=== PATIENT | female | born 1990 | race Caucasian/White ===

== ENCOUNTER 2024-11-06 07:08 | Day surgery (SDC) | payer SELFPAY ==
[2024-11-04 09:04] VITALS: BMI 26.9
[2024-11-06] MEDS ORDERED: Bupivacaine/Epinephrine 0.25% 30 ML VIAL ONE (08:23)
[2024-11-06] MEDS ORDERED: Scopolamine 1 mg/72 hour Patch ONE (08:29)
[2024-11-06] MEDS ORDERED: Famotidine/PF 20 mg/2ml Vial ONE (08:29)
[2024-11-06] MEDS ORDERED: SUGAMMADEX SODIUM 200 MG/2 ML VIAL ONE (08:31)
[2024-11-06] MEDS ORDERED: PROPOFOL 20 ML ONE (08:31)
[2024-11-06] MEDS ORDERED: Lidocaine 2% PF 5 ML VIAL ONE (08:31)
[2024-11-06] MEDS ORDERED: Ondansetron PF 4 MG/2 ML Vial ONE (08:31)
[2024-11-06] MEDS ORDERED: Dexamethasone 4 mg/ml Vial ONE (08:31)
[2024-11-06] MEDS ORDERED: Fentanyl 100 MCG/2 ML VIAL ONE (08:31)
[2024-11-06] MEDS ORDERED: Ketorolac Tromethamine 30 MG (1 mL) VIAL ONE (08:31)
[2024-11-06] MEDS ORDERED: Rocuronium Bromide 10 MG/ML (10ML VIAL) ONE (08:32)
[2024-11-06] MEDS ORDERED: CEFAZOLIN 2 GM VIAL ONE (08:43)
[2024-11-06] MEDS ORDERED: Indocyanine Green 25 MG/10 ML VIAL ONE (08:44)
[2024-11-06] MEDS ORDERED: fentaNYL 50 mcg/mL 1 mL Vial ONE (09:44)
[2024-11-06] MEDS ORDERED: HYDROcodone/Acetaminophen 5/325 mg Tablet ONE (10:28)
== END 2024-11-06 11:30 | disposition home or self-care (01) ==
LOC: CSHSDC 07:08
PROVIDERS: ATTEND Surgery
PROC: 0FT44ZZ Resection of Gallbladder, Percutaneous Endoscopic Approach (ICD-10-PCS; principal; 2024-11-06)
DX: K80.10 Calculus of gallbladder with chronic cholecystitis without obstruction (principal); Z87.59 Personal history of other complications of pregnancy, childbirth and the puerperium
CPT/HCPCS: 88304; C1889; J1100; J1885; J2405; J2704; J3010; J3490; S2900

== ENCOUNTER 2025-09-24 07:15 | Inpatient (IN) | payer SELFPAY ==
[2025-09-21 13:31] LABS: Hematocrit 31.8 % (34.9-44.5); Hemoglobin 10.3 g/dL (12.0-15.5); Platelet Count 189 10x3/uL (150-450)
[2025-09-21 14:05] LABS: Syphilis Antibody Index 0.04 S/CO (<1.00 Non-Reactive)
[2025-09-21 14:07] LABS: HIV (1/2) Antibody/Antigen Non-Reactive (NonReactive); HIV 1/2 INDEX 0.12 S/CO (<1.00); Hep B Surf Ag Non-Reactive S/CO (NonReactive)
[2025-09-24] MEDS ORDERED: Bicitra 30 ML UDCUP PO PRN (07:46)
[2025-09-24] MEDS ORDERED: Ondansetron PF 4 MG/2 ML Vial IVP PRN ×4 (07:46→12:37)
[2025-09-24] MEDS ORDERED: hydrALAZINE 20 MG/ML VIAL SLOW IVP PRN ×2 (07:46→11:04)
[2025-09-24] MEDS ORDERED: Famotidine/PF 20 mg/2ml Vial SLOW IVP PRN (07:46)
[2025-09-24] MEDS ORDERED: Oxytocin 30 units/NS 500 ML 500 ML IV SCH ×2 (07:46→11:04)
[2025-09-24 07:48] VITALS: BMI 32.2
[2025-09-24] MEDS: Famotidine/PF 20 mg/2ml Vial ONE (09:08)
[2025-09-24] MEDS ORDERED: Bisacodyl 10 MG SUPP PR PRN (11:04)
[2025-09-24] MEDS ORDERED: HYDROcodone/Acetaminophen 5/325 mg Tablet PO PRN ×2 (11:04)
[2025-09-24] MEDS ORDERED: diphenhydrAMINE 25 MG CAP PO PRN (11:04)
[2025-09-24] MEDS ORDERED: Simethicone Chewable 80 MG TAB PO PRN (11:04)
[2025-09-24] MEDS: CEFAZOLIN 2 GM VIAL ONE (12:33)
[2025-09-24] MEDS: Dexamethasone 10 MG/ML VIAL ONE (12:33)
[2025-09-24] MEDS: Erythromycin Base 0.5% Oint 1 GM TUBE ONE (12:33)
[2025-09-24] MEDS: Oxytocin 10 UNITS/ML VIAL ONE (12:34)
[2025-09-24] MEDS: PHENYLEPHRINE-NS 100 MCG/ML 10 ML SYRINGE ONE (12:34)
[2025-09-24] MEDS: Ondansetron PF 4 MG/2 ML Vial ONE (12:34)
[2025-09-24] MEDS ORDERED: Meperidine HCl/PF 25 MG (1 mL) VIAL SLOW IVP PRN (12:37)
[2025-09-24] MEDS ORDERED: diphenhydrAMINE 50 MG/ML VIAL IVP PRN (12:37)
[2025-09-24] MEDS ORDERED: Ketorolac Tromethamine 30 MG (1 mL) VIAL IVP SCH (12:45)
[2025-09-24] MEDS ORDERED: Communication Order-Pharmacy FS SCH (12:45)
[2025-09-24] MEDS: Ferrous Sulfate 325 MG TAB PO SCH (19:26)
[2025-09-25] MEDS ORDERED: HYDROcodone/Acetaminophen 5/325 mg Tablet PO PRN ×2 (00:46)
[2025-09-25 06:01] LABS: Hematocrit 26.5 % (34.9-44.5); Hemoglobin 8.5 g/dL (12.0-15.5); Mean Corpuscular Hemoglobin 27.5 pg (27.0-33.0); Mean Corpuscular Volume 85.8 fL (81.6-98.3); Platelet Count 138 10x3/uL (150-450); Red Blood Cell (RBC) Count 3.09 10x6/uL (3.90-5.03); White Blood Cell (WBC) Count 11.56 10x3/uL (3.5-10.5)
[2025-09-25] MEDS: Ketorolac Tromethamine 30 MG (1 mL) VIAL IVP PRN (06:51)
[2025-09-25] MEDS: Ibuprofen 800 MG TAB PO SCH (17:32)
[2025-09-26 07:49] VITALS: BP 117/65; TEMP 98.3
== END 2025-09-26 13:47 | disposition home or self-care (01) | DRG 788 ==
LOC: CSHLD 07:15 → CSHPP 12:20
PROVIDERS: ADMIT Obstetrics & Gynecology; ATTEND Obstetrics & Gynecology
PROC: 10D00Z1 Extraction of Products of Conception, Low, Open Approach (ICD-10-PCS; principal; 2025-09-24)
DX: O34.211 Maternal care for low transverse scar from previous cesarean delivery (principal); Z3A.39 39 weeks gestation of pregnancy; Z37.0 Single live birth; Z90.49 Acquired absence of other specified parts of digestive tract
CPT/HCPCS: 36415; 36416; 51702; 85014; 85018; 85027; 85049; 86780; 86850; 86900; 86901; 87340; 87389; J1100; J1308; J1885; J2274; J2405; J2590